=== PATIENT | female | born 1955 | race Caucasian/White ===

== ENCOUNTER 2018-11-03 10:36 | Emergency (ER) | payer OTHER ==
[2018-11-03 12:14] LABS: URINE BLOOD (Dip) POC Trace-intact (NEGATIVE); URINE GLUCOSE (Dip) POC Negative (NEGATIVE); URINE KETONES (Dip) POC Negative (NEGATIVE); URINE LEUKOCYTE EST (Dip) POC 1+ (NEGATIVE); URINE NITRITE (Dip) POC Positive (NEGATIVE); URINE TOTAL PROTEIN POC Negative (NEGATIVE)
[2018-11-03] MEDS: CEFTRIAXONE 1 GM INJ IM (12:43)
[2018-11-03] MEDS: LIDOCAINE 1% (MDV) 20 ML INJ SC (12:44)
== END 2018-11-03 12:53 | disposition home or self-care (01) ==
LOC: FTE 10:36
DX: N39.0 Urinary tract infection, site not specified (principal); E11.9 Type 2 diabetes mellitus without complications
CPT/HCPCS: 81003; 82962; 87086; 96372; 99284-25